=== PATIENT | female | born 1975 | race African-American/Black ===

== ENCOUNTER 2017-02-14 21:31 | Emergency (ER) | payer OTHER ==
[~2017-02-14] VITALS: Ht 167.6 cm; Wt 77.1 kg
--- NOTE | ~2017-02-14 | EKG ---
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
[2017-02-14] MEDS ORDERED: AMLODIPINE BESY10 MG PO (21:34)
[2017-02-14] MEDS ORDERED: CHLORTHALIDONE25 MG PO (21:34)
[2017-02-14] MEDS ORDERED: LISINOPRIL40 MG PO (21:35)
[2017-02-14 22:08] LABS: ABSOLUTE NEUTROPHILS 3.4 thou/uL (1.4-8.2); BASOPHILS 0.7 % (0.0-2.0); EOSINOPHILS 3.7 % (0.0-3.0); HEMATOCRIT 41.8 % (37.0-47.0); LYMPHOCYTES 47.1 % (24.0-44.0); MCH 32.8 pg (26.0-34.0); MCHC 33.6 g/dL (28.0-37.0); MCV 97.6 fL (80.0-100.0); MONOCYTES 6.2 % (1.0-8.0); PLATELET COUNT 158 thou/uL (150-400); POLYS 42.3 % (36.0-66.0); RBC 4.28 mil/uL (4.20-5.00); RDW 12.4 % (10.5-14.5)
[2017-02-14 22:15] LABS: ANION GAP 10 mmol/L (7-16); BUN 27 mg/dL (7-18); CALCIUM 9.5 mg/dL (8.5-10.1); CHLORIDE 104 mmol/L (98-107); CO2 24 mmol/L (21-32); GLUCOSE 106 mg/dL (74-106); POTASSIUM 3.7 mmol/L (3.5-5.1); SODIUM 138 mmol/L (136-145)
[2017-02-14 22:16] LABS: MANUAL DIFF NO
[2017-02-14 22:23] LABS: ALBUMIN 3.8 g/dL (3.4-5.0); ALKALINE PHOSPHATASE 67 U/L (46-116); SGOT 20 U/L (15-37); SGPT 19 U/L (30-65); TOTAL BILIRUBIN 0.2 mg/dL (<0.1-1.0); TOTAL PROTEIN 7.7 g/dL (6.4-8.2); TROPONIN-I < 0.04 ng/mL (<0.04-0.07)
[2017-02-14 22:48] LABS: LARGE PLATELETS FEW
[2017-02-15] MEDS ORDERED: CYCLOBENZAPRINE5 MG PO (00:21)
[2017-02-15] MEDS ORDERED: MOBIC15 MG PO (00:21)
[2017-02-15 00:41] VITALS: BP 119/74
== END 2017-02-15 00:43 | disposition home or self-care (01) ==
LOC: ER 21:31
PROVIDERS: Physician Assistant
DX: R07.89 Other chest pain (principal); M62.830 Muscle spasm of back; I10 Essential (primary) hypertension; F17.210 Nicotine dependence, cigarettes, uncomplicated; F10.99 Alcohol use, unspecified with unspecified alcohol-induced disorder

== ENCOUNTER 2017-05-02 22:06 | Observation (INO) | payer OTHER ==
[~2017-05-02] VITALS: Ht 160 cm; Wt 74.5 kg
--- NOTE | ~2017-05-02 | EKG ---
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
[~2017-05-02 22:06] MED LIST: AMLODIPINE BESY10 MG PO; CHLORTHALIDONE25 MG PO; CYCLOBENZAPRINE5 MG PO; LISINOPRIL40 MG PO; MOBIC15 MG PO
[2017-05-02 22:15] VITALS: BP 140/94
[2017-05-02 22:48] LABS: HEMATOCRIT 39.2 % (37.0-47.0); HEMOGLOBIN 13.7 gm/dL (12.0-15.0); MCH 33.9 pg (26.0-34.0); MCV 97.1 fL (80.0-100.0); RBC 4.04 mil/uL (4.20-5.00); RDW 13.3 % (10.5-14.5); WBC 7.7 thou/uL (4.0-11.0)
[2017-05-02 22:58] LABS: ANION GAP 10 mmol/L (7-16); BUN 37 mg/dL (7-18); CALCIUM 9.3 mg/dL (8.5-10.1); CHLORIDE 102 mmol/L (98-107); CO2 26 mmol/L (21-32); CREATININE 2.7 mg/dL (0.6-1.0); GLUCOSE 101 mg/dL (74-106); POTASSIUM 3.2 mmol/L (3.5-5.1); SODIUM 138 mmol/L (136-145)
[2017-05-02 23:07] LABS: TROPONIN-I < 0.04 ng/mL (<0.04-0.07)
[2017-05-03 02:21] VITALS: BP 114/75
[2017-05-03] MEDS ORDERED: CHLORTHALIDONE25 MG PO (02:36)
[2017-05-03 03:09] VITALS: BP 146/90
[2017-05-03 08:15] VITALS: BP 123/82
[2017-05-03 11:15] VITALS: BP 136/91
[2017-05-03 15:25] VITALS: BP 153/99
[2017-05-03 19:53] VITALS: BP 143/95
[2017-05-04 04:09] VITALS: BP 163/101
[2017-05-04 04:20] LABS: HEMATOCRIT 40.7 % (37.0-47.0); MCH 33.8 pg (26.0-34.0); MCHC 34.5 g/dL (28.0-37.0); MCV 97.9 fL (80.0-100.0); RBC 4.16 mil/uL (4.20-5.00); RDW 13.3 % (10.5-14.5); WBC 5.4 thou/uL (4.0-11.0)
[2017-05-04 04:31] LABS: CALCIUM 8.9 mg/dL (8.5-10.1); POTASSIUM 3.9 mmol/L (3.5-5.1)
[2017-05-04 05:06] LABS: CREATININE 1.5 mg/dL (0.6-1.0)
[2017-05-04 07:25] VITALS: BP 147/93
[2017-05-04 08:45] LABS: CALCIUM 9.3 mg/dL (8.5-10.1); CREATININE 1.5 mg/dL (0.6-1.0); POTASSIUM 3.7 mmol/L (3.5-5.1)
[2017-05-04 11:35] VITALS: BP 142/91
[2017-05-04 12:08] VITALS: BP 147/93
== END 2017-05-04 12:30 | disposition home or self-care (01) ==
LOC: ER 22:06 → EROBS 05-03 01:48 → 2N 05-03 01:48
PROVIDERS: Emergency Medicine; Hospitalist; Nurse Practitioner Family
DX: R07.89 Other chest pain (principal); I10 Essential (primary) hypertension; K21.9 Gastro-esophageal reflux disease without esophagitis; N17.9 Acute kidney failure, unspecified; F17.210 Nicotine dependence, cigarettes, uncomplicated